=== PATIENT | female | born 1960 | race Caucasian/White ===

== ENCOUNTER → 2017-02-09 | Outpatient (CLI) | payer OTHER ==
[~2017-02-09] MED LIST: ALBU8.5H2 IH; ASP325T PO; ATEN50TA PO; CLON0.5T3 PO; CYCL-97 PO; ESCI20TA2 PO; EZET10TA5 PO; FLT05NA16 NSEACH; FLUT100D IH; FURO20TA4 PO; GARLIC PO; HYDR-3714 PO; HYDR50CA3 PO; INSU100I16 SQ; INSU100V16 SC; IPRA3AMP19 IH; ISM60TCR PO; LISI5TAB PO; MELO15TA14 PO; MULTI PO; NITRO SPRAY; OMEG1CAP58 PO; TRAM50TA2 PO; TRZ50T PO
--- NOTE | 2017-02-09 15:34 | Diagnostic Imaging Report ---
EXAMINATION: Upper and lower extremity pressure measurements of ankle/brachial index and pulse volume recording at the ankle. INDICATION: Claudication FINDINGS: The ankle/brachial index on the right side is 0.99, (0.97 PT, and 0.99 DP) and on the left is 1.0 (1.02 PT, and 0.95 DP). Pulse volume recording waveforms demonstrate no significant abnormality. IMPRESSION: Normal KATHLEEN, bilaterally. Dictated by: Dictated on workstation # [id number]
== END ==
LOC: RAD 14:15
PROVIDERS: ATTEND Nurse Practitioner Family
DX: J43.1 Panlobular emphysema (principal); I73.9 Peripheral vascular disease, unspecified
CPT/HCPCS: 93922

== ENCOUNTER → 2021-05-22 | Outpatient (CLI) | payer OTHER ==
--- NOTE | 2021-05-22 13:18 | Diagnostic Imaging Report ---
EXAMINATION: Bilateral diagnostic mammogram with CAD. INDICATION: Left nipple discharge. COMPARISON: This study was compared to the prior exam of 03/16/2012. FINDINGS: Reportedly, the patient has green nipple discharge from the left breast. There is no abnormality in the retroareolar region to account for the nipple discharge. Even so, I would recommend that ultrasound be performed for further study. The overall appearance of the breasts has not changed significantly since the prior exam. There are scattered fibroglandular densities in both breasts which could obscure a lesion. There is no primary or secondary sign of malignancy noted. IMPRESSION: There is no evidence for malignancy. There is no abnormality to account for the patient's nipple discharge on the left either. Ultrasound would be recommended for further study. ACR BI-RADS Category 0: Incomplete. (Needs additional imaging evaluation). Result letter will be mailed to the patient. Note: At least 10% of breast cancer is not imaged by mammography. Dictated by: Dictated on workstation # [id number]
--- NOTE | 2021-05-22 13:23 | Diagnostic Imaging Report ---
EXAMINATION: Left breast limited ultrasound. INDICATION: Nipple discharge. COMPARISON: There are no prior ultrasound examinations available for comparison. The diagnostic mammogram performed prior to this study failed to show any evidence for malignancy. There was no abnormality to account for the patient's left nipple discharge either. FINDINGS: On this exam, there is no discrete solid or cystic mass within the retroareolar region of the left breast. There is no abnormal ductal dilatation identified either. IMPRESSION: 1. There is no evidence for malignancy or for an acute abnormality to account for the patient's nipple discharge. 2. If the patient's symptoms of nipple discharge persist or worsen, then MRI should be considered for further study. 3. The patient should also have her annual bilateral screening mammogram on schedule in May 2022. ACR BI-RADS Category 1: Negative. Dictated by: Dictated on workstation # [id number]
== END ==
LOC: RAD 12:45
PROVIDERS: ATTEND Nurse Practitioner Family
DX: N64.52 Nipple discharge (principal)
CPT/HCPCS: 76642; 77066; G0279; 77062

== ENCOUNTER → 2021-06-05 | Outpatient (CLI) | payer SELFPAY ==
[~2021-06-05] MED LIST changes: +GADOBUTROL 15 MMOL/15 ML (GADAVIST) VIAL IV ONE
--- NOTE | 2021-06-05 11:51 | Diagnostic Imaging Report ---
Reason for examination: Left breast nonbloody nipple discharge. Comparison studies are mammogram and ultrasound examinations from 05/22/2021. TECHNIQUE: Utilizing 1.5 Leda Siemens magnet, patient was placed in a prone position with a 16 channel [employer] dedicated breast coil utilized. Axial STIR and fat sat T2 precontrasted images and axial T1 with and without fat-sat images were obtained. Postcontrast high-resolution dynamic images were also obtained. Pre and post contrasted images are then evaluated with [facility] for evaluation of possible angiogenesis. 8 mL of Gadavist was injected. The breast tissue is mostly fat. There is mild background parenchymal enhancement. RIGHT BREAST: No suspicious mass or non-mass enhancement. LEFT BREAST: No suspicious mass or non-mass enhancement. No finding to correlate with nonbloody nipple discharge. EDA BASINS: No suspicious adenopathy in the bilateral regional eda basins. IMPRESSION: 1. No MRI evidence for malignancy. There is no finding to correlate with nonbloody left nipple discharge. Clinical management and follow-up of nonbloody left nipple discharge is recommended. Otherwise, annual screening mammography is recommended. ACR BI-RADS Category 1: Negative. Recommendations: Clinical management and follow-up of non-bloody left nipple discharge. Annual screening mammography. Dictated by: Dictated on workstation # [id number]
== END ==
LOC: RAD 09:30
PROVIDERS: ATTEND Nurse Practitioner Family
DX: N64.52 Nipple discharge (principal)
CPT/HCPCS: 77049